=== PATIENT | male | born 1985 | race Caucasian/White ===

== ENCOUNTER 2016-11-05 14:52 | Emergency (ER) | payer BC ==
[2016-11-05 15:10] VITALS: BP 136/77
--- NOTE | 2016-11-05 15:45 | UC ---
Ear Complaint HPI - HPI Summary HPI Summary: 30 male presents with complaints of left ear pain and sore throat that began 1 week ago, left ear pain began 5 days ago and worsened upon waking this morning. Admits to cough that is worst in the morning. Patient thought it was just allergies and began taking claritin ~ 3 days ago. States he has not had any relief. Also tried Advil. Denies known sick contacts. Throat and cough are worse in the morning that get better at night. No PMHx, no asthma. Denies dizziness, nasal congestion, fever/chills, nausea, vomiting, headache, hearing loss and tinnitus. No trauma or FB to ear. Patient had ear tubes multiple times until he was approximately 14 years old due to recurrent and frequent ear infections. - History of Current Complaint Chief Complaint: UCGeneralIllness Stated Complaint: LEFT EAR PAIN,SORE THROAT Time Seen by Provider: 11/05/16 15:43 Hx Obtained From: Patient Onset/Duration: Sudden Onset, Lasting Weeks - 1 week, Still Present Severity Initially: Mild Severity Currently: Mild Alleviating Factors: OTC Meds Associated Signs/Symptoms: Positive: URI Symptoms. Negative: Discharge, Hearing Loss, Foreign Body Sensation, Trauma to Ear, Swelling @ Related History: Seasonal Allergies - Allergies/Home Medications Allergies/Adverse Reactions: Allergies Allergy/AdvReac Type Severity Reaction Status Date / Time Amoxicillin [From Augmentin] Allergy Hives Verified 11/05/16 15:10 Clavulanic Acid Allergy Hives Verified 11/05/16 15:10 [From Augmentin] Home Medications: Home Medications Ibuprofen TAB* [Advil TAB*] 400 mg PO Q8H PRN 11/05/16 [History Confirmed ] PMH/Surg Hx/FS Hx/Imm Hx Endocrine History Of: Denies: Diabetes Respiratory History Of: Denies: Asthma Psychological History Of: Reports: Depression - Surgical History Surgical History: Yes - tonsillectomy, appendectomy - Family History Known Family History: Positive: None - Social History Alcohol Use: Rare Substance Use Type: None Smoking Status (MU): Never Smoked Tobacco - Immunization History Most Recent Influenza Vaccination: Not UTD Most Recent Tetanus Shot: Unsure Most Recent Pneumonia Vaccination: Never Review of Systems Constitutional: Negative Skin: Negative ENT: Sore Throat, Ear Ache Respiratory: Cough Cardiovascular: Negative Gastrointestinal: Negative Musculoskeletal: Negative All Other Systems Reviewed And Are Negative: Yes Physical Exam Triage Information Reviewed: Yes Appearance: Well-Appearing, No Pain Distress, Well-Nourished Vital Signs: Initial Vital Signs Temp 97 F 11/05/16 15:07 Pulse 82 11/05/16 15:07 Resp 16 11/05/16 15:07 BP 136/77 11/05/16 15:07 Pulse Ox 99 11/05/16 15:07 Vital Signs Reviewed: Yes Eyes: Positive: Conjunctiva Clear - erythematous conjunctiva b/l, cobblestoning ENT: Positive: Normal ENT inspection, Hearing grossly normal, Pharyngeal erythema, TM dull, TM red - right TM normal, left TM unable to examine due to cerumen, once irrigated able to note TM erythematous, dull and retracted., Other : - uvula midline, airway patent. Negative: Nasal congestion, Nasal drainage, TM bulging, Tonsillar swelling, Tonsillar exudate, Trismus, Muffled/hoarse voice Dental: Negative: Cervical Lymphadenopathy Neck: Positive: Supple, Nontender, No Lymphadenopathy Respiratory: Positive: Chest non-tender, Lungs clear, Normal breath sounds, No respiratory distress, No accessory muscle use. Negative: Respiratory distress, Crackles, Rhonchi, Stridor, Wheezing Cardiovascular: Positive: RRR, No Murmur, Pulses Normal Abdomen Description: Positive: Nontender Bowel Sounds: Positive: Present Musculoskeletal: Positive: Strength Intact, ROM Intact Neurological Exam: Normal Skin Exam: Normal Ear Complaint Course/Dx - Course Course Of Treatment: left ear was irrigated. once able to visualize TM, Otitis media noted. Due to PE findings and HPI patient will be treated with antbiotic for OM and symptomatically for allergies/pharyngitis at this time. Try Claritin- D, chloraseptic spray. Gargle with salt water and humidifier. Follow up with pcp. if symptoms worsen or new symptoms develop in next 7-10 days return. - Differential Dx/Diagnosis Differential Diagnosis/HQI/PQRI: Cerumen Impaction, Otitis Externa, Otitis Media , Pharyngitis, URI Provider Diagnoses: Left otitis media, Pharyngitis Discharge - Discharge Plan Condition: Stable Disposition: HOME Prescriptions: Azithromycin TAB* [Zithromax TAB (Z-KOREY) 250 mg #6 tabs] 2 tab PO .TODAY, THEN 1 DAILY #1 korey Patient Education Materials: Pharyngitis (ED), Otitis Media (ED) Referrals: No Primary Care Phys,NOPCP [Primary Care Provider] - [facility] [Outside] Additional Instructions: Take prescribed antibiotic as directed until entire dose is finished. Try using Chloraseptic spray to help soothe sore throat. Gargle with salt water. Use a humidifier if you have one while you sleep, and take hot showers to breathe in steam Continue Claritin-D for the next 2 weeks. Give time to work. Drink plenty of fluids and get plenty of rest. Do not share drinks and wash hands frequently to prevent spread of germs. Do not submerge ears under water, keep fingers and q-tips out of ears. If symptoms return or do not improve in the next 10 days please return. Follow up with PCP.
== END 2016-11-05 16:43 | disposition home or self-care (01) ==
LOC: UCCORT 14:52
DX: H66.92 Otitis media, unspecified, left ear (principal); J02.9 Acute pharyngitis, unspecified; Z88.1 Allergy status to other antibiotic agents
CPT/HCPCS: 99213; G0463

== ENCOUNTER 2017-04-11 13:04 | Emergency (ER) | payer BC ==
[2017-04-11 13:22] VITALS: BP 127/74
--- NOTE | 2017-04-11 14:36 | UC ---
Eye Complaint HPI - HPI Summary HPI Summary: 31 year old male with cough and eye complaint. states woke up yesterday with right eye redness and drainage. Also c/o dry cough x 6 days. [ End ] - History of Current Complaint Chief Complaint: UCEye Stated Complaint: SORE THROAT,EYE COMPLAINT Time Seen by Provider: 04/11/17 14:31 Hx Obtained From: Patient Onset/Duration: Gradual Onset Timing: Constant Severity Initially: Moderate Alleviating Factor(s): Nothing Associated Signs And Symptoms: Positive: Drainage (Purulent) - Risk Factors Penetrating Injury Risk Factor: Negative Acute Glaucoma Risk Factors: Negative - Allergies/Home Medications Allergies/Adverse Reactions: Allergies Allergy/AdvReac Type Severity Reaction Status Date / Time Amoxicillin [From Augmentin] Allergy Hives Verified 04/11/17 13:22 Clavulanic Acid Allergy Hives Verified 04/11/17 13:22 [From Augmentin] PMH/Surg Hx/FS Hx/Imm Hx Previously Healthy: Yes - Surgical History Surgical History: Yes Surgery Procedure, Year, and Place: appendectomy. tonsillectomy - Family History Known Family History: Positive: None - Social History Occupation: Employed Full-time Lives: With Family Alcohol Use: Occasionally Substance Use Type: None Smoking Status (MU): Never Smoked Tobacco - Immunization History Most Recent Influenza Vaccination: 03/2017 Most Recent Tetanus Shot: Unsure Most Recent Pneumonia Vaccination: Never Review of Systems Eyes: Drainage, Eye Redness ENT: Nasal Discharge, Sinus Congestion Respiratory: Cough Is Patient Immunocompromised?: No All Other Systems Reviewed And Are Negative: Yes Physical Exam Triage Information Reviewed: Yes Appearance: Well-Appearing, No Pain Distress, Well-Nourished Vital Signs: Initial Vital Signs Temp 97.7 F 04/11/17 13:18 Pulse 72 04/11/17 13:18 Resp 16 04/11/17 13:18 BP 127/74 04/11/17 13:18 Pulse Ox 99 04/11/17 13:18 Eye Exam: Normal Eyes: Positive: Conjunctiva Inflamed, Discharge - clear ENT Exam: Normal Dental Exam: Normal Neck exam: Normal Neck: Positive: 1 Respiratory Exam: Normal Cardiovascular Exam: Normal Musculoskeletal Exam: Normal Neurological Exam: Normal Psychological Exam: Normal Skin Exam: Normal Eye Complaint Course/Dx - Course Course Of Treatment: with recent contact lens use and unilateral discharge in the eye will offer antibiotic drops and refer to optho as there is a chance its viral -- he is aware and agreeable-- he states he had had viral conjunctivitis inthe past and had corneal issues and went to [facility] for this but this time it feels different and more discharge so will treat at this time. he is awar of SE of the meds and no contacts for 7 days. - Differential Dx/Diagnosis Differential Diagnosis/HQI/PQRI: Conjunctivitis, Other - uri Provider Diagnoses: conjunctivitis right eye Discharge - Discharge Plan Condition: Good Disposition: HOME Prescriptions: Ciprofloxacin 0.3% OPTH.HANNAH* [Cipro 0.3% Opth*] 2 drop RIGHT EYE Q4H #1 btl Patient Education Materials: Conjunctivitis (ED) Referrals: Jessica Díaz MD [Medical Doctor] - (Opthomology referral ) Patrick Sánchez MD [Primary Care Provider] - 4 Days Additional Instructions: No contacts for 1 week. Please follow up with ophthalmology with your previous history of having viral conjunctivitis
== END 2017-04-11 14:55 | disposition home or self-care (01) ==
LOC: UCCORT 13:04
DX: H10.9 Unspecified conjunctivitis (principal); Z88.1 Allergy status to other antibiotic agents
CPT/HCPCS: 99212; G0463

== ENCOUNTER 2017-07-23 11:38 | Emergency (ER) | payer BC ==
--- NOTE | 2017-07-23 12:09 | UC ---
Respiratory Complaint HPI - HPI Summary HPI Summary: 31 y/o male presents to the urgent care c/o dry cough, body aches, chills, sore throat, nasal congestion, nausea since yesterday. Pt reports his back is sore of coughing. 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 Pt denies fever, SOB, chest pain, abdominal pain, N/V/D, urinary symptoms - History of Current Complaint Stated Complaint: COUGH/SORE BACK Time Seen by Provider: 07/23/17 12:08 Hx Obtained From: Patient Onset/Duration: Gradual Onset, Lasting Days - 1 day, Still Present Timing: Constant Severity Initially: Mild Severity Currently: Moderate Pain Intensity: 6 - sore throat Pain Scale Used: 0-10 Numeric Character: Cough: Nonproductive Aggravating Factors: Recumbent Position Alleviating Factors: Nothing Associated Signs And Symptoms: Positive: Chills, URI, Nasal Congestion, Sinus Discomfort - Risk Factors Pulmonary Embolism Risk Factors: Negative Cardiac Risk Factors: Negative Pseudomonas Risk Factors: Negative Tuberculosis Risk Factors: Negative - Allergies/Home Medications Allergies/Adverse Reactions: Allergies Allergy/AdvReac Type Severity Reaction Status Date / Time Amoxicillin [From Augmentin] Allergy Hives Verified 07/23/17 12:05 Clavulanic Acid Allergy Hives Verified 07/23/17 12:05 [From Augmentin] PMH/Surg Hx/FS Hx/Imm Hx Previously Healthy: Yes - Pt denies PMHX - Surgical History Surgical History: Yes Surgery Procedure, Year, and Place: appendectomy. tonsillectomy - Family History Known Family History: Positive: None - Pt denies FMHX - Social History Occupation: Employed Full-time Lives: With Family Alcohol Use: Occasionally Substance Use Type: None Smoking Status (MU): Never Smoked Tobacco - Immunization History Most Recent Influenza Vaccination: 03/2017 Most Recent Tetanus Shot: Unsure Most Recent Pneumonia Vaccination: Never Review of Systems Constitutional: Chills, Other - body aches Skin: Negative Eyes: Eye Redness - RT eye ENT: Sore Throat, Nasal Discharge, Sinus Congestion Respiratory: Cough - dry Cardiovascular: Negative Gastrointestinal: Negative Genitourinary: Negative Motor: Negative Neurovascular: Negative Musculoskeletal: Negative Neurological: Headache Psychological: Negative Is Patient Immunocompromised?: No All Other Systems Reviewed And Are Negative: Yes Physical Exam Triage Information Reviewed: Yes - Additional Comments VITAL SIGNS: Reviewed. GENERAL: Patient is a well developed and nourished male who is sitting comfortable in the examining table. Patient is not in any acute respiratory distress. HEAD AND FACE: No signs of trauma. No ecchymosis, hematomas or skull depressions. No sinus tenderness. edematous erythematous nasal mucosa with yellowish discharge, EYES: PERRLA, EOMI x 2, RT conjuntiva injected with mild yellowish discharge. LF conjunctiva WNL.no nystagmus. No photophobia. EARS: Hearing grossly intact. Ear canals and tympanic membranes are within normal limits. MOUTH: Positive pharynx with erythema, no exudates,no palatal petechiae. no B/ L tonsillar enlargement Uvula in midline. NECK: Supple, trachea is midline, Positive anterior cervical lymphadenopathy, no JVD, no carotid bruit, no c-spine tenderness, neck with full ROM. No meningeal signs, no Kernig's or brudzinskis signs. CHEST: Symmetric, no tenderness at palpation LUNGS: Clear to auscultation bilaterally. No wheezing or crackles. CVS: Regular rate and rhythm, S1 and S2 present, no murmurs or gallops appreciated. ABDOMEN: Soft, non-tender. No signs of distention. No rebound no guarding, and no masses palpated. Bowel sounds are normal. EXTREMITIES: FROM in all major joints, no edema, no cyanosis or clubbing. NEURO: Alert and oriented x 3. No acute neurological deficits. Speech is normal and follows commands. SKIN: Dry and warm Respiratory Course/Dx - Course Course Of Treatment: 31 y/o male presents to the urgent care c/o dry cough, body aches, chills, sore throat, nasal congestion, nausea since yesterday. Pt reports his back is sore of coughing. 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 Pt denies fever, SOB, chest pain, abdominal pain, N/V/D, urinary symptoms. Hx obtained. Pt with an URI and RT bacterial conjunctivitis on examination.Influenza A&B ordered: result: Negative. Pt Rx Erythomycin ophthalmic oint for conjuntivitis and Tessalon tabs PO to alleviate cough. Advised on hand washing to avoid spreading. Pt advised to rest, increase fluid intake, eat well and avoid strenuous exercise. If symptoms do not improve or worsen advised to return to the urgent care or f/u with her PCP for further evaluation and treatment. Pt understood and agreed with plan of care. - Differential Dx/Diagnosis Differential Diagnosis/HQI/PQRI: Asthma, Bronchitis, Influenza, Laryngitis, Sinusitis, Other - URI, pharyngitis Provider Diagnoses: 1- Upper respiratory infection. 2- RT aye bacterial conjunctivitis Discharge - Discharge Plan Condition: Stable Disposition: HOME Prescriptions: Benzonatate CAP* [Tessalon 100 MG CAP*] 100 mg PO TID #21 cap Erythromycin TOPICAL GEL* [Erythromycin OPTH OINT*] 1 applic TOPICAL TID #1 oint Patient Education Materials: Upper Respiratory Infection (ED), Conjunctivitis ( ED) Forms: *Work Release Referrals: [facility] [place] [facility] [Outside] - If Needed Additional Instructions: 1-Please continue taking Tylenol PO q6-8hrs prn as instructed after meals to alleviate fever, and sore throat. Increase fluid intake, eat well, rest and avoid strenuous exercise 2- Remove your contact lenses and apply Ophthalmic oint. as directed on your RT eye. Encourage hand washing to avoid spread on the other eye 3- Take Tessalon tabs PO as directed to alleviate cough 3-If symptoms do not improve or worsen please return to the urgent care or f/u with your PCP in 2 days for further evaluation and treatment.
[2017-07-23 12:15] VITALS: BP 138/76
== END 2017-07-23 13:00 | disposition home or self-care (01) ==
LOC: UCCORT 11:38
DX: J06.9 Acute upper respiratory infection, unspecified (principal); H10.89 Other conjunctivitis; A49.9 Bacterial infection, unspecified; Z72.89 Other problems related to lifestyle
CPT/HCPCS: 87502; 99212; G0463

== ENCOUNTER 2018-08-13 10:14 | Emergency (ER) | payer BC ==
[2018-08-13 12:24] VITALS: BP 121/80
--- NOTE | 2018-08-13 12:43 | UC ---
Ear Complaint HPI - HPI Summary HPI Summary: 32-year-old male comes in with a chief complaint of upper respiratory tract infection symptoms and left ear pain with ear drainage. The upper respiratory tract infection symptoms for about 4 days. His been taken [id number] medicines which do help with symptoms. Patient has a long history of recurrent ear infections and that's what this feels like. This morning woke up with left ear pain and drainage come from the left ear. No fevers no chest congestion no myalgias. - History of Current Complaint Chief Complaint: UCEar Stated Complaint: SINUS CONCERN Time Seen by Provider: 08/13/18 12:19 Pain Intensity: 2 - Allergies/Home Medications Allergies/Adverse Reactions: Allergies Allergy/AdvReac Type Severity Reaction Status Date / Time amoxicillin [From Augmentin] Allergy Hives Verified 08/13/18 12:20 clavulanic acid Allergy Hives Verified 08/13/18 12:20 [From Augmentin] Home Medications: Home Medications Phenylephrine/Dm/Acetaminop/GG [Daytime Severe Cold-Flu Liquid] 1 udc PO DAILY PRN 08/13/18 [History Confirmed 08/13/18] PMH/Surg Hx/FS Hx/Imm Hx Previously Healthy: Yes - RECURRENT OM - Surgical History Surgical History: Yes Surgery Procedure, Year, and Place: appendectomy. tonsillectomy - Family History Known Family History: Positive: None - Pt denies FMHX - Social History Alcohol Use: Rare Substance Use Type: None Smoking Status (MU): Never Smoked Tobacco - Immunization History Most Recent Influenza Vaccination: 03/2017 Most Recent Tetanus Shot: Unsure Most Recent Pneumonia Vaccination: Never Review of Systems All Other Systems Reviewed And Are Negative: Yes Constitutional: Positive: Negative Skin: Positive: Negative Eyes: Positive: Negative ENT: Positive: Sore Throat, Ear Ache, Nasal Discharge, Sinus Congestion Respiratory: Positive: Negative Cardiovascular: Positive: Negative Gastrointestinal: Positive: Negative Motor: Positive: Negative Neurovascular: Positive: Negative Musculoskeletal: Positive: Negative Neurological: Positive: Negative Psychological: Positive: Negative Is Patient Immunocompromised?: No Physical Exam Triage Information Reviewed: Yes Appearance: No Pain Distress, Well-Nourished, Ill-Appearing - MILD Vital Signs: Initial Vital Signs Temp 97.9 F 08/13/18 12:21 Pulse 74 08/13/18 12:21 Resp 16 08/13/18 12:21 BP 121/80 08/13/18 12:21 Pulse Ox 100 08/13/18 12:21 Vital Signs Reviewed: Yes Eye Exam: Normal Eyes: Positive: Conjunctiva Clear ENT: Positive: Pharyngeal erythema, Nasal congestion, Nasal drainage, TM bulging - LEFT, TM red - LEFT, Other - LEFT EAR CANAL DRAINAGE WITH MILD TRAGAL TENDERNESS Neck exam: Normal Neck: Positive: Supple Respiratory: Positive: Lungs clear, Normal breath sounds, No respiratory distress Cardiovascular: Positive: RRR Musculoskeletal Exam: Normal Musculoskeletal: Positive: Strength Intact, ROM Intact Neurological Exam: Normal Neurological: Positive: Alert, Muscle Tone Normal Psychological Exam: Normal Psychological: Positive: Age Appropriate Behavior Skin Exam: Normal Ear Complaint Course/Dx - Differential Dx/Diagnosis Provider Diagnosis: Left otitis media, Left otitis externa Discharge - Sign-Out/Discharge Documenting (check all that apply): Patient Departure All imaging exams completed and their final reports reviewed: No Studies - Discharge Plan Condition: Stable Disposition: HOME Prescriptions: Cefdinir [Cefdinir 300 MG CAP] 300 mg PO BID #20 cap Ofloxacin 0.3% (Ear Drop)* [Floxin 0.3% OTIC.HANNAH (Ear Drop)] 5 drop LEFT EAR BID #1 btl Patient Education Materials: Otitis Externa (ED), Ear Infection (ED) Referrals: Patrick Sánchez MD [Primary Care Provider] - Additional Instructions: FOLLOW UP WITH YOUR DOCTOR IF NOT COMPLETELY IMPROVED. GET RECHECKED FOR ANY WORSENING OF YOUR CONDITION OR QUESTIONS OR CONCERNS. - Billing Disposition and Condition Condition: STABLE Disposition: Home
== END 2018-08-13 12:47 | disposition home or self-care (01) ==
LOC: UCCORT 10:14
DX: H66.92 Otitis media, unspecified, left ear (principal); H60.92 Unspecified otitis externa, left ear; Z88.0 Allergy status to penicillin
CPT/HCPCS: 99212; G0463